=== PATIENT | male | born 1975 | race Caucasian/White ===

== ENCOUNTER 2018-02-07 10:28 | Emergency (ER) | payer OTHER, SELFPAY ==
[2018-02-07 10:30] VITALS: BP 131/72; PULSE 87; RESP 16; TEMP 36.8; O2SAT 98; BMI 31.1
[2018-02-07 11:36] VITALS: BP 109/76; PULSE 75; RESP 14; O2SAT 100
[2018-02-07] MEDS: Propofol 200 MG/20 ML Vial IV BOLUS (11:37)
[2018-02-07 11:38] VITALS: BP 109/76; BP 121/78; BP 123/85; PULSE 75; PULSE 77; PULSE 80; RESP 14; RESP 16; RESP 18; O2SAT 100
[2018-02-07 11:51] VITALS: BP 122/98; PULSE 73; RESP 18; O2SAT 100
[2018-02-07] MEDS: oxyCODONE 5 MG Tablet PO (11:57)
--- NOTE | 2018-02-07 12:29 | ED.VISSUMM ---
- ER Visit Summary Date of Service: 02/07/18 Chief Complaint: Increased pain swelling and redness left buttocks History of Present Illness: The patient is a 43 M who [facility] and had an I&D of left buttocks abscess. Apparently there was a stab incision made. He was placed on Bactrim. He denies fever, chills night sweats. He denies history of rheumatic fever, murmur, SBE, IV drug use or being immune suppressed. He denies any urologic symptoms. There is no history of inflammatory bowel disorder. He has no other complaints please read written note. Physical Examination: Patient appears uncomfortable. Vital signs are unremarkable. Head is atraumatic normocephalic. Pupils are equal round reactive. Extraocular muscles are intact. TMs are pearly white with landmarks noted. Nares patent with no drainage. Posterior pharynx without erythema or exudate. Uvula is midline. There is no dysphonia or dysphasia. Trachea is midline. There is no stridor with auscultation of the neck. Heart is regular without murmur, gallop or rub. S1 and S2 are normal. Lungs are clear to auscultation with good movement of air bilaterally. There is a left buttocks abscess near the gluteal crease. There is no fissures, fistulas or hemorrhoids noted on visual examination of the anus. Digital exam cause discomfort; however, there is no fluctuance. Test Results: None Emergency Department Course and Treatment: Patient was consented for deep sedation and I&D. Patient denies allergy to soy products or egg products. He states he is never undergone anesthesia. ASA score 1. Rowan Gin score 1. Patient was informed of risks benefits of the procedure sedation with propofol. He was explained the most common side effects. He was given an opportunity to ask questions. His questions were answered to his satisfaction. Timeout was performed. Patient initially received 100 mg of propofol followed by 50 mg of propofol. There was no desaturation or hemodynamic instability. The area was anesthetized 1% lidocaine. An incision was made with a 10 blade. Blunt dissection was undertaken with significant amount of drainage noted. The cavity was irrigated. Using 1/2 inch iodoform a wick was placed in the area was dressed. Upon awakening he complained of pain and was given 5 mg of oxycodone. Treatment Plan: Patient was discussed with Dr. Tyrone Hudson to who will see patient in 2 days for wound reevaluation Disposition: Discharged home in stable improved condition Impression: 1. Left buttocks abscess 2. Deep procedural sedation (total time 13 minutes and 39 seconds) 3. Incision and drainage of left buttocks abscess This note was generated with [employer] dictation software. It may contain incorrect words, spelling, and punctuation that were not noted in review of the chart prior to signing ED Disposition - Plan for ED Patient: Disposition: Home or Assisted Living Chief Complaint: Abscess Instructions: ED Abscess IandD Prescriptions: Oxycodone HCl/Acetaminophen [Percocet 5/325] 1 tab PO Q6H PRN PRN 3 Days #12 tab PRN Reason: Pain Referrals: Care Physician,No Primary [Primary Care Provider] - Tyrone Hudson MD [STAFF PHYSICIAN] - 2 Days for wound check
--- NOTE | 2018-02-07 12:35 | ED.DCSUM_ITS ---
- ER Visit Summary Date of Service: 02/07/18 Chief Complaint: Increased pain swelling and redness left buttocks History of Present Illness: The patient is a 43 M who [facility] and had an I&D of left buttocks abscess. Apparently there was a stab incision made. He was placed on Bactrim. He denies fever, chills night sweats. He denies history of rheumatic fever, murmur , SBE, IV drug use or being immune suppressed. He denies any urologic symptoms. There is no history of inflammatory bowel disorder. He has no other complaints please read written note. Physical Examination: Patient appears uncomfortable. Vital signs are unremarkable. Head is atraumatic normocephalic. Pupils are equal round reactive. Extraocular muscles are intact. TMs are pearly white with landmarks noted. Nares patent with no drainage. Posterior pharynx without erythema or exudate. Uvula is midline. There is no dysphonia or dysphasia. Trachea is midline. There is no stridor with auscultation of the neck. Heart is regular without murmur, gallop or rub. S1 and S2 are normal. Lungs are clear to auscultation with good movement of air bilaterally. There is a left buttocks abscess near the gluteal crease. There is no fissures, fistulas or hemorrhoids noted on visual examination of the anus. Digital exam cause discomfort; however , there is no fluctuance. Test Results: None Emergency Department Course and Treatment: Patient was consented for deep sedation and I&D. Patient denies allergy to soy products or egg products. He states he is never undergone anesthesia. ASA score 1. Rowan Gin score 1. Patient was informed of risks benefits of the procedure sedation with propofol. He was explained the most common side effects. He was given an opportunity to ask questions. His questions were answered to his satisfaction. Timeout was performed. Patient initially received 100 mg of propofol followed by 50 mg of propofol. There was no desaturation or hemodynamic instability. The area was anesthetized 1% lidocaine. An incision was made with a 10 blade. Blunt dissection was undertaken with significant amount of drainage noted. The cavity was irrigated. Using 1/2 inch iodoform a wick was placed in the area was dressed. Upon awakening he complained of pain and was given 5 mg of oxycodone. Treatment Plan: Patient was discussed with Dr. Tyrone Hudson to who will see patient in 2 days for wound reevaluation Disposition: Discharged home in stable improved condition Impression: 1. Left buttocks abscess 2. Deep procedural sedation (total time 13 minutes and 39 seconds) 3. Incision and drainage of left buttocks abscess This note was generated with [employer] dictation software. It may contain incorrect words, spelling, and punctuation that were not noted in review of the chart prior to signing ED Disposition - Plan for ED Patient: Disposition: Home or Assisted Living Chief Complaint: Abscess Instructions: ED Abscess IandD Prescriptions: Oxycodone HCl/Acetaminophen [Percocet 5/325] 1 tab PO Q6H PRN PRN 3 Days #12 tab PRN Reason: Pain Referrals: Care Physician,No Primary [Primary Care Provider] - Tyrone Hduson MD [STAFF PHYSICIAN] - 2 Days for wound check
[2018-02-07 13:00] VITALS: BP 117/81; PULSE 78; RESP 16; O2SAT 97
[2018-02-07] MEDS: Ondansetron 4 MG/2 ML Vial IV (13:00)
[2018-02-07] MEDS: Morphine 4 MG/ML Syringe IV (13:01)
--- NOTE | 2018-02-07 13:36 | ED.VISSUMM ---
- ER Visit Summary Date of Service: 02/07/18 Chief Complaint: [] History of Present Illness: The patient is a 43 M [] Physical Examination: [] Test Results: [] Emergency Department Course and Treatment: [] Treatment Plan: [] Disposition: [] Impression: [] This note was generated with [employer] dictation software. It may contain incorrect words, spelling, and punctuation that were not noted in review of the chart prior to signing ED Disposition - Plan for ED Patient: Disposition: Home or Assisted Living Chief Complaint: Abscess Instructions: ED Abscess IandD Prescriptions: Oxycodone HCl/Acetaminophen [Percocet 5/325] 1 tab PO Q6H PRN PRN 3 Days #12 tab PRN Reason: Pain Amox/Clavulanate Tablet [Augmentin Tablet] 875 mg PO Q12H #14 tab Referrals: Tyrone Hudson MD [STAFF PHYSICIAN] - 2 Days for wound check Care Physician,No Primary [Primary Care Provider] -
--- NOTE | 2018-02-07 13:39 | ED.DCSUM_ITS ---
- ER Visit Summary Date of Service: 02/07/18 Chief Complaint: [] History of Present Illness: The patient is a 43 M [] Physical Examination: [] Test Results: [] Emergency Department Course and Treatment: [] Treatment Plan: [] Disposition: [] Impression: [] This note was generated with [employer] dictation software. It may contain incorrect words, spelling, and punctuation that were not noted in review of the chart prior to signing ED Disposition - Plan for ED Patient: Disposition: Home or Assisted Living Chief Complaint: Abscess Instructions: ED Abscess IandD Prescriptions: Oxycodone HCl/Acetaminophen [Percocet 5/325] 1 tab PO Q6H PRN PRN 3 Days #12 tab PRN Reason: Pain Amox/Clavulanate Tablet [Augmentin Tablet] 875 mg PO Q12H #14 tab Referrals: Tyrone Hudson MD [STAFF PHYSICIAN] - 2 Days for wound check Care Physician,No Primary [Primary Care Provider] -
[2018-02-07] MEDS: Amox/Clavulanate 875 MG Tablet PO (13:42)
== END 2018-02-07 13:43 | disposition home or self-care (01) ==
PROVIDERS: Emergency Provider Emergency Medicine
DX: L02.31 Cutaneous abscess of buttock (principal); Z72.0 Tobacco use
CPT/HCPCS: 10061; 10060; 96374; 96375; 99152; 99284; J7030; A4216; J2405

== ENCOUNTER 2024-05-09 16:29 | Emergency (ER) | payer OTHER, SELFPAY ==
[2024-05-09 16:30] VITALS: BP 160/95; PULSE 105; RESP 17; TEMP 36.2; O2SAT 98; BMI 32.8
[2024-05-09 17:19] LABS: Bedside Glucose > 500 mg/dL (74-106)
--- NOTE | 2024-05-09 17:42 | EX.ED.DYSGE1 ---
HPI History of Present Illness Chief Complaint: Hyperglycemia Informant: patient Onset/Context/Timing Onset: Month(s) Context: Gradual Onset Timing: Continuous Quality: Hyperglycemia Location: Generalized Worsened by: Nothing Relieved by: Nothing Narrative Narrative: Patient presents with elevated blood sugar that was noticed today. Patient went to the urgent care today where they checked his blood sugar and noted it to be 545. Patient states he has been having some urinary frequency for the past couple months but has gotten worse over the past couple weeks. Patient denies any fevers or chills. Patient denies any nausea or vomiting. Patient denies any chest pain or shortness of breath. Patient denies any visual changes. Patient denies any history of diabetes. [facility] Medical History Hyperglycemia Home Medications ?Medication ?Instructions ?Recorded ?Last Taken ?Type metformin 500 mg tablet 500 mg PO BID #14 tabs 05/09/24 Unknown Rx Allergy/AdvReac Type Severity Reaction Status Date / Time No Known Allergies Allergy Verified 05/09/24 16:30 Surgical History no surgical history no surgical history Social History Smoking Status: Current every day smoker tobacco type: cigarettes ROS ROS ED Constitutional Constitutional ED: Denies chills or fever(s) Eyes Eyes: Denies blurry vision or change in vision ENT ENT ED: Denies rhinorrhea or sore throat Cardiovascular Cardiovascular: Denies chest pain or palpitations Respiratory/Chest Respiratory/Chest: Denies cough or dyspnea Gastrointestinal Gastrointestinal: Denies nausea or vomiting Genitourinary Genitourinary ED: Reports urinary frequency; Denies dysuria or hematuria Musculoskeletal Musculoskeletal: Reports back pain; Denies neck pain Integumentary Denies abscess or rash Neurologic Neurologic: Denies headache(s) or weakness Endocrine Endocrinology: Reports polyuria Allergic/Immunologic Allergic/Immunologic ED: Denies mouth swelling or urticaria EXAM Physical Exam Const Vital Signs: 05/09/24 16:30 05/09/24 18:25 05/09/24 20:00 Temperature 97.2 F L Temperature Source Temporal Pulse Rate 105 H 77 83 Respiratory Rate 17 19 H Blood Pressure 160/95 H 135/81 H 127/83 H Blood Pressure Mean 116 99 97 Pulse Ox 98 94 96 Oxygen Delivery Method Room Air Room Air Positive well nourished and well developed General Appearance ED: well developed and NAD HEENT Reports moist mucous membranes Neck supple and no JVD Resp normal respiratory effort and clear to auscultation bilaterally Cardio regular rhythm Rate: tachycardic GI non-tender and non-distended Palpation: soft Neuro oriented x3, CN's II-XII intact bilaterally and no sensory deficits noted Sensorium / Orientation: alert Motor Exam: strength 5/5 throughout Psych mental status grossly normal MDM MDM MDM Narrative Medical decision making narrative: Differential diagnose includes new onset diabetes, diabetic ketoacidosis, hyperosmolar hyperglycemic nonketotic state, and electrolyte abnormality. CBC will be obtained to assess for leukocytosis and anemia. Basic metabolic profile will be obtained to assess for electrolyte abnormality and renal function. Serum acetone will be obtained to assess for diabetic ketoacidosis. Urinalysis will be obtained to assess for urinary tract infection and glucosuria. Lab Data Attestation: I reviewed the patient's lab results. Lab results narrative: CBC was reviewed and was within normal limits. Basic metabolic profile was reviewed. Glucose was 494. Anion gap was normal at 8. BUN was slightly elevated at 20. Sodium was slightly low at 133. The remainder was within normal limits. Urinalysis was reviewed. Urine glucose was 1000. There is no evidence of urinary tract infection or hematuria. Repeat BGT was reviewed after 1 L of IV fluids and was 326. Repeat BGT was reviewed after 2 L of IV fluids and was 295. Labs: Laboratory Results - last 24 hr 05/09/24 05/09/24 05/09/24 17:01 18:08 19:10 WBC 8.4 RBC 5.28 Hgb 15.7 Hct 45.2 MCV 85.6 MCH 29.7 MCHC 34.7 RDW Std Deviation 37.6 RDW Coeff of Gege 12.2 Plt Count 263 MPV 10.4 Immature Gran % (Auto) 1.000 H Neut % (Auto) 53.7 Lymph % (Auto) 32.7 [place] % (Auto) 9.2 Eos % (Auto) 2.0 Baso % (Auto) 1.4 H Absolute Neuts (auto) 4.5 Absolute Lymphs (auto) 2.75 Nucleated RBC % 0 Sodium 133 L Potassium 3.7 Chloride 100 Carbon Dioxide 24.0 Anion Gap 8 BUN 20 H Creatinine 1.09 Estim Creat Clear Calc 91.13 Est GFR (MDRD) Af Amer 93 Est GFR (MDRD) Non-Af 77 BUN/Creatinine Ratio 18.3 Glucose 494 H* Calcium 8.8 Urine Color Yellow Urine Clarity Clear Urine pH 6.0 Ur Specific [place] 1.015 Urine Protein Negative Urine Glucose (UA) 1000 H Urine Ketones Negative Urine Occult Blood 10 H Urine Nitrite Negative Urine Bilirubin Negative Urine Urobilinogen Normal Ur Leukocyte Esterase Negative Urine RBC 0 SEEN Urine WBC 0 SEEN Ur Squamous Epith Cells 0 SEEN Urine Bacteria 0 SEEN Urine Mucus 0 SEEN Acetone Level NEGATIVE POC Glucose > 500 H* 326 H 05/09/24 19:32 WBC RBC Hgb Hct MCV MCH MCHC RDW Std Deviation RDW Coeff of Gege Plt Count MPV Immature Gran % (Auto) Neut % (Auto) Lymph % (Auto) [place] % (Auto) Eos % (Auto) Baso % (Auto) Absolute Neuts (auto) Absolute Lymphs (auto) Nucleated RBC % Sodium Potassium Chloride Carbon Dioxide Anion Gap BUN Creatinine Estim Creat Clear Calc Est GFR (MDRD) Af Amer Est GFR (MDRD) Non-Af BUN/Creatinine Ratio Glucose Calcium Urine Color Urine Clarity Urine pH Ur Specific [place] Urine Protein Urine Glucose (UA) Urine Ketones Urine Occult Blood Urine Nitrite Urine Bilirubin Urine Urobilinogen Ur Leukocyte Esterase Urine RBC Urine WBC Ur Squamous Epith Cells Urine Bacteria Urine Mucus Acetone Level POC Glucose 295 H Treatment and Re-Evaluation :: Smoking cessation was discussed. Patient was given IV fluids. Patient was given a dose of subcu insulin. Patient was advised of his findings. Patient was given a prescription for metformin. Patient was given a referral for a primary care physician for follow-up care in 5 to 7 days. Patient was instructed to avoid sweets, starches, and high carbohydrate foods. Patient was instructed to return if worse in any way. Patient understood and was agreeable with the plan. All questions were answered. Discharge Plan Triage Chief Complaint: Hyperglycemia ED Provider: Art Garibay Dx/Rx/DC Orders Clinical Impression: Hyperglycemia, New onset type 2 diabetes mellitus Instructions: ED Diabetes- Overview, ED Diabetic Hyperglycemia Prescriptions: New metformin 500 mg tablet 500 mg PO BID Qty: 14 0RF Primary Care Provider: Care Physician,No Primary Referrals: Madhuri Barr MD [Med Staff - Global Marketing Manager] - 3-5 Days Care Physician,No Primary [Primary Care Provider] - Print Language: Faroese Disposition Disposition: Home, Self Care
[2024-05-09] MEDS: 0.9% Normal Saline (1000mL) 1,000 ML 1000 ML IV ×2 (18:15→19:16)
[2024-05-09 18:19] LABS: Bacteria 0 SEEN /hpf (None Seen); Mucous, Urine 0 SEEN /hpf (<or=2+); Red Blood Cells-Urine 0 SEEN /hpf (0-5); Squamous Epithelial Cells - UA 0 SEEN /hpf (0-5); White Blood Cells 0 SEEN /hpf (0-5)
[2024-05-09 18:23] LABS: Color, Urine Yellow (Yellow); Glucose, Dipstick 1000 mg/dl (Normal); Ketone-Dipstick Negative (Negative); Leukocyte Esterase-Dipstick Negative /ul (Negative); Nitrite-Dipstick Negative (Negative); Occult Blood-Urine 10 /ul (Negative); Protein-Dipstick Negative (Negative); Specific Gravity, Urine 1.015 (1.002-1.030); Urine Bilirubin Dipstick Negative (Negative); Urine Clarity Clear (Clear); Urine Urobilinogen Normal (Normal)
[2024-05-09 18:25] VITALS: BP 135/81; PULSE 77; RESP 19; O2SAT 94
[2024-05-09 18:27] LABS: Absolute Lymphocyte Count 2.75 X10^3/uL (0.83-4.51); Absolute Neutrophil Count 4.5 X10^3/uL (2.0-7.7); Basophil# 0.12 X10^3/uL; Basophil% 1.4 % (0-1); Eosinophil# 0.17 X10^3/uL; Hematocrit 45.2 % (40-54); Hemoglobin 15.7 g/dL (13.0-16.5); Lymphocyte # 2.75 X10^3/ul (0.83-4.51); Lymphocyte % 32.7 % (19-41); Mean Corp Hgb Conc 34.7 g/dL (32-36); Mean Corpuscular Hgb 29.7 pg (27.0-32.0); Mean Corpuscular Volume 85.6 fL (80-94); Mean Platelet Vol. 10.4 fl (6.2-12.0); Monocyte# 0.77 X10^3/uL; Monocyte% 9.2 % (0-10); NRBC Flagged by Analyzer 0 % (0-5); Neutrophil # 4.51 X10^3/uL (2.7-7.7); Neutrophil % 53.7 % (47-70); Platelet Count 263 K/mm3 (150-450); RBC Distribution Width CV 12.2 % (11.6-14.6); RBC Distribution Width SD 37.6 fl (35.1-43.9); Red Blood Count 5.28 M/mm3 (4.6-6.2); White Blood Count 8.4 K/mm3 (4.4-11.0)
[2024-05-09 18:52] LABS: Anion Gap 8 (5-15); BUN 20 mg/dL (7-18); BUN/Creat Ratio 18.3 RATIO (10-20); Calcium,Total 8.8 mg/dL (8.5-10.1); Chloride 100 mmol/L (98-107); Creatinine, Serum 1.09 mg/dL (0.70-1.30); EST Glomerular Filtration Rate 77 mL/min (>60); Est Glom Filt Rate - Afr Amer 93 mL/min (>60); Estimated Creatinine Clearance 91.13 ml/min; Glucose 494 mg/dL (74-106); Potassium 3.7 mmol/L (3.5-5.1); Sodium Level 133 mmol/L (136-145)
[2024-05-09] MEDS: Insulin Lispro 100 UNIT/ML INSULN.PEN 15 UNIT SC (19:16)
[2024-05-09 19:27] LABS: Bedside Glucose 326 mg/dL (74-106)
[2024-05-09 19:51] LABS: Bedside Glucose 295 mg/dL (74-106)
[2024-05-09 20:00] VITALS: BP 127/83; PULSE 83; O2SAT 96
[2024-05-09 20:18] VITALS: BP 127/83; PULSE 83; RESP 18; TEMP 36.6; O2SAT 96
== END 2024-05-09 20:22 | disposition home or self-care (01) ==
PROVIDERS: Emergency Provider Emergency Medicine; Visit Provider Emergency Medicine
DX: E11.65 Type 2 diabetes mellitus with hyperglycemia (principal); F17.210 Nicotine dependence, cigarettes, uncomplicated
CPT/HCPCS: 80048; 81001; 82009; 82962; 85025; 96360; 96361; 96372; 99282; A4216